=== PATIENT | male | born 1980 | race Caucasian/White ===

== ENCOUNTER 2017-03-26 15:24 | Emergency (ER) | payer OTHER ==
[2017-03-26 15:33] VITALS: TEMP 99.5
[2017-03-26] MEDS ORDERED: Bacitracin 500 Units/gm Oint Foilpak UD ONE (15:44)
--- NOTE | 2017-03-26 16:04 | C.PDOC ---
History Of Present Illness 36 year old male, otherwise well, presents to the ED for evaluation of an abrasion to the right knee and right elbow sustained yesterday. Patient states while his child was riding a scooter he broke the child's fall and skidded forward. He notes he was washed the area and applied bacitracin. Patient denies headache, neck pain, weakness, or numbness. Time Seen by Provider: 03/26/17 15:36 Chief Complaint (Nursing): Abnormal Skin Integrity History Per: Patient History/Exam Limitations: no limitations Onset/Duration Of Symptoms: Days (injury occured yesterday ) Current Symptoms Are (Timing): Still Present Location Of Injury: Right: Elbow, Knee Severity: Mild Pain Scale Rating Of: 2 Recent travel outside of the [place]: No Past Medical History Reviewed: Historical Data, Nursing Documentation, Vital Signs Vital Signs: Last Vital Signs Temp 99.5 F 03/26/17 15:33 Pulse 80 03/26/17 16:40 Resp 20 03/26/17 16:40 BP 110/70 03/26/17 16:40 Pulse Ox 99 03/26/17 16:40 Family History: States: Unknown Family Hx - Social History Hx Alcohol Use: No Hx Substance Use: No - Immunization History Hx Tetanus Toxoid Vaccination: No Hx Influenza Vaccination: No Hx Pneumococcal Vaccination: No Review Of Systems Constitutional: Negative for: Fever, Chills Respiratory: Negative for: Shortness of Breath Skin: Positive for: Other (Abrasion to right knee and right elbow) Neurological: Negative for: Weakness, Numbness, Headache, Dizziness Physical Exam - Physical Exam Appears: Non-toxic, No Acute Distress Skin: Warm, Dry, Other (Round abrasion 4 cm in diameter to right knee. Linear superficial 5 cm abrasion to right forearm. ) Head: Atraumatic Eye(s): bilateral: Normal Inspection, PERRL, EOMI Oral Mucosa: Moist Neck: Supple Chest: Symmetrical Cardiovascular: Rhythm Regular Respiratory: No Wheezing Extremity: Normal ROM, No Tenderness, No Calf Tenderness, Capillary Refill ( good capillary refill, less than two seconds ), No Deformity, No Swelling Neurological/Psych: Oriented x3, Normal Speech, Normal Cognition, Normal Motor, Normal Sensation, Normal Reflexes Gait: Steady ED Course And Treatment O2 Sat by Pulse Oximetry: 98 (room air ) Progress Note: Patient was given tetanus shot and motrin. Disposition Counseled Patient/Family Regarding: Diagnosis, Need For Followup - Disposition Disposition: HOME/ ROUTINE Disposition Time: 16:01 Condition: STABLE Additional Instructions: Take Motrin or Tylenol for pain as needed. Keep area clean and dry, use Bacitracin ointment and a large bandaid. Forms: [facility] (Croatian), General Discharge Instructions - Clinical Impression Clinical Impression: Abrasion of knee - Scribe Statement The provider has reviewed the documentation as recorded by the Scribe Hallie Santo All medical record entries made by the Kennaibe were at my direction and personally dictated by me. I have reviewed the chart and agree that the record accurately reflects my personal performance of the history, physical exam, medical decision making, and the department course for this patient. I have also personally directed, reviewed, and agree with the discharge instructions and disposition.
[2017-03-26 16:41] VITALS: BP 110/70; PULSE 80; RESP 20
[2017-03-26 17:40] VITALS: O2SAT 98
== END 2017-03-26 16:42 | disposition home or self-care (01) ==
LOC: C.ER 15:24
DX: S80.211A Abrasion, right knee, initial encounter (principal); S50.811A Abrasion of right forearm, initial encounter; X58.XXXA Exposure to other specified factors, initial encounter